=== PATIENT | male | born 1965 | race Hispanic/Latino ===

== ENCOUNTER 2018-07-14 20:40 | Emergency (ER) | payer BC, OTHER ==
[2018-07-14] MEDS ORDERED: CEFAZOLIN SODIUM 1 GM VIAL ONE (21:23)
[2018-07-14] MEDS ORDERED: TETANUS/DIPHTHERIA TOXOID [ADULT] 0.5 ML VIAL IM ONE (21:23)
[2018-07-14] MEDS ORDERED: SODIUM CHLORIDE 0.9% 50 ML IV ONE (21:27)
== END 2018-07-14 23:41 | disposition home or self-care (01) ==
LOC: EDH 20:40
DX: S62.632A Displaced fracture of distal phalanx of right middle finger, initial encounter for closed fracture (principal); S61.302A Unspecified open wound of right middle finger with damage to nail, initial encounter; Z72.0 Tobacco use; X58.XXXA Exposure to other specified factors, initial encounter; Y93.89 Activity, other specified; Y92.098 Other place in other non-institutional residence as the place of occurrence of the external cause; Y99.8 Other external cause status
CPT/HCPCS: 11730; 73130; 90471; 90714; 96365; 99284; J0690

== ENCOUNTER 2023-04-08 06:58 | Day surgery (SDC) | payer BC ==
[2023-04-02 11:59] LABS: BASOPHILS % (AUTO) 0.6 % (0.0-5.0); EOSINOPHILS % (AUTO) 2.7 % (0.0-8.0); HEMATOCRIT 43.1 % (42-54); LYMPHOCYTES % (AUTO) 24.5 % (21.0-51.0); MEAN CORPUSCULAR HEMOGLOBIN 29.2 pg (27.0-33.0); MEAN CORPUSCULAR HGB CONC 33.2 g/dL (32.0-36.0); MONOCYTES % (AUTO) 11.1 % (3.0-13.0); NEUTROPHILS % (AUTO) 60.4 % (40.0-77.0); PLATELET COUNT (AUTO) 283 K/uL (130-400); RED CELL DISTRIBUTION WIDTH 12.8 % (11.0-15.5); WHITE BLOOD COUNT (AUTO) 10.2 K/uL (4.8-10.8)
[2023-04-02 12:03] LABS: APPEARANCE,URINE CLEAR (CLEAR); BILIRUBIN,URINE NEGATIVE (NEGATIVE); COLOR,URINE YELLOW (YELLOW); GLUCOSE, URINE (UA) NEGATIVE (NEGATIVE); KETONES,URINE NEGATIVE (NEGATIVE); LEUKOCYTE ESTERASE ,URINE NEGATIVE Leu/uL (NEGATIVE); NITRATE,URINE NEGATIVE (NEGATIVE); OCCULT BLOOD,URINE LARGE (NEGATIVE); PH,URINE 6.5 (5.0-8.0); PROTEIN,URINE 20 mg/dL (NEGATIVE); UROBILINOGEN,URINE 0.2 mg/dL (0.2-1.0)
[2023-04-02 12:13] LABS: MUCUS,URINE RARE LPF (None Seen); RBC,URINE >100 /HPF (0-1); SQUAMOUS EPITHELIAL CELL,UR RARE /HPF (0-2)
[2023-04-02 12:14] LABS: CREATININE 0.7 mg/dL (0.5-1.5)
[2023-04-02 13:53] VITALS: BP 151/78
[~2023-04-08] VITALS: Ht 175.3 cm; Wt 102.3 kg
[2023-04-08] VITALS (16 sets, daily range): BP systolic 108–144; BP diastolic 72–84
[~2023-04-08 06:58] MED LIST: AEC81 PO; GEMF600T89 PO; LOSA100T59 PO; MELO-106 PO; METF-527 PO; TRAM50TA4 PO
[2023-04-08] MEDS ORDERED: LIDOCAINE PF 100MG/5ML (2%) SYRINGE 5ML ONE (07:17)
[2023-04-08] MEDS ORDERED: SUCCINYLCHOLINE 200MG/10ML SYR ONE (07:17)
[2023-04-08] MEDS ORDERED: DEXAMETHASONE SOD PHOSPHATE 10MG/ML 1ML VIAL ONE (07:17)
[2023-04-08] MEDS ORDERED: GLYCOPYRROLATE 1 MG/5 ML SYRINGE ONE (07:18)
[2023-04-08] MEDS ORDERED: NEOSTIGMINE 5MG/5ML SYR IV ONE (07:18)
[2023-04-08] MEDS ORDERED: FENTANYL CITRATE PF 50 MCG/1 ML 2ML VIAL ONE (07:18)
[2023-04-08] MEDS ORDERED: ROCURONIUM 10MG/1ML SYR 10 MG/ML ML ONE (07:18)
[2023-04-08] MEDS ORDERED: MIDAZOLAM HCL 1 MG/ML 2ML VIAL ONE (07:18)
[2023-04-08] MEDS ORDERED: PROPOFOL 10 MG/ML 20ML VIAL IV ONE (07:18)
[2023-04-08] MEDS ORDERED: ONDANSETRON 4MG INJ ONE ×2 (07:18→10:19)
[2023-04-08] MEDS ORDERED: CEFTRIAXONE 1G VIAL ONE (07:25)
[2023-04-08] MEDS ORDERED: 0.9%NACL 1000ML 1,000 ML IV ONE (07:25)
[2023-04-08] MEDS ORDERED: EPHEDRINE SULFATE 50 MG/ML AMPULE ONE (09:02)
[2023-04-08] MEDS ORDERED: MEPERIDINE-PF 25 MG/ML SYG ONE ×2 (09:05→10:19)
[2023-04-08] MEDS ORDERED: KETOROLAC 30MG VIAL (30MG/ML) ONE (09:06)
== END 2023-04-08 11:25 | disposition home or self-care (01) ==
LOC: DAH 06:58
PROVIDERS: ATTEND Urology
DX: N20.0 Calculus of kidney (principal); Z20.822 Contact with and (suspected) exposure to COVID-19; N40.0 Benign prostatic hyperplasia without lower urinary tract symptoms; R31.0 Gross hematuria; I10 Essential (primary) hypertension; E11.9 Type 2 diabetes mellitus without complications; E66.9 Obesity, unspecified; I45.10 Unspecified right bundle-branch block; Z79.899 Other long term (current) drug therapy; Z79.82 Long term (current) use of aspirin; Z79.01 Long term (current) use of anticoagulants; Z79.84 Long term (current) use of oral hypoglycemic drugs; Z98.890 Other specified postprocedural states; Z68.33 Body mass index [BMI] 33.0-33.9, adult
CPT/HCPCS: 80048; 85025; 87088; 87426; 81001; 36415 ×2; 71045; 93005; 52356; 82948 ×2; 82360; 74018; A6260; A4663; A6207; J7030 ×2; A4354; C1758; C2617; J3010; J0330; J3490 ×2; J1100; J2710; J2001; J0696; J2250; J2704; J2405 ×2; J1885; J2175 ×2; A4358; C1769 ×2; A4930; A4215; A4223; A4222; A4221; A4600